=== PATIENT | male | born 1960 | race African-American/Black ===

== ENCOUNTER 2017-08-23 05:42 | Day surgery (SDC) | payer OTHER ==
[~2017-08-23] VITALS: Ht 177.8 cm; Wt 110.7 kg
--- NOTE | ~2017-08-23 | PATH ---
[facility] [place] [address] PATHOLOGY RPT PROCEDURE Name: CHARLI GREENE Luiz [id number] Admission: 08/23/17 Date of : 60 Discharge: 08/23/17 Report #: [id number] Path Case #: [id number] [facility] Accession Number: [id number] . 01 Material submitted: . PART A: CYSTIC MASS OF THE BACK PART B: SKIN TAGS, RIGHT FACE AND LEFT NECK . 01 Clinical history: . Back mass, skin tags . 02 Diagnosis: A. "Large cystic mass of the back", excision: - Skin and subcutaneous tissue with epidermal inclusion cyst. . B. "Skin tags right face, left neck", excision: - Polypoid seborrheic keratosis. - Acrochordon (fibroepithelial polyp, skin tag). (CLW:ulises; 08/25/2017) QMS/08/25/2017 . 02 Electronically signed: . Brianna Thurman MD, Pathologist NPI- [id number] . 01 Gross description: . A. The specimen is received in formalin, labeled "Charli Greene, large cystic mass of the back". Received is an ellipse of light vo skin with attached underlying capsular tissue measuring 7.7 x 5.5 x 4.1 cm in greatest dimensions. Sectioning reveals a unilocular cystic structure measuring 5.1 cm filled with white-vo friable material. The specimen is submitted representatively in cassette A1. . B. The specimen is received in formalin, labeled "Charli Greene, skin tags right face, left neck". Received are 13 tag-like segments of emerson-brown skin ranging in size from 0.1 x 0.1 x 0.1 to 0.5 x 0.4 x 0.3 cm in greatest dimensions. The surgical margins are inked. The specimen is submitted entirely in cassettes B1 and B2, with each segment submitted intact. (CAA; 08/24/2017) QAC/QAC . 02 Pathologist provided ICD-10: L72.0, L82.1 . 02 CPT . 849761, [id number] [place] [address] PATHOLOGY RPT PROCEDURE Name: CHARLI GREENE Room #: DEP [facility] M.R.#: [id number] Admission: 08/23/17 Date of : 60 Discharge: 08/23/17 Report #: [id number] Path Case #: [id number] Performed at: 01 [facility] [place] [address] [place] [address] [address], [place], [place] [id number] MD Fredo Mitchell MD Phone: [phone] Performed at: [address] [id number] MD Amanda De Souza MD Phone: [phone]
--- NOTE | ~2017-08-23 | O ---
[facility] [place] [address] [place] [address] OPERATIVE REPORT Name: CHARLI GREENE Room #: DEP [facility]#: [id number] Admission: 08/23/17 Attend Phys: Amos Cunningham MD Discharge: 08/23/17 Date of : 60 Report #: [id number] THIS REPORT FOR: //name// CC: BRIAN Cunningham DATE OF SERVICE: 08/23/[address] Amos Cunningham and Dr. Brian Kevin. PREOPERATIVE DIAGNOSES: Large 6 x 8.5 cm skin and deep subcutaneous mass of the back and 14 skin tags of the face and neck. POSTOPERATIVE DIAGNOSIS: Large 6 x 8.5 cm skin and deep subcutaneous mass of the back and 14 skin tags of the face and neck. PROCEDURE: Excision of a large 8.5 x 6 cm skin and subcutaneous cystic mass of the back with a complex layered closure and removal of 14 skin tags of the face and neck. SURGEON: Amos Cunningham MD. ANESTHESIA: Local. DESCRIPTION OF PROCEDURE: The patient was brought to the operating room and placed on operative table in the prone position. The back was then prepped and draped in a sterile fashion. Skin and subcutaneous tissue were then infiltrated with 0.5% Marcaine and 1% Xylocaine in a 1:1 mixture. Elliptical skin incision was performed over the mass using a #15 scalpel blade. Hemostasis obtained using electrocautery. Dissection was carried down around the cystic mass using the curved Pablo scissors and the knife. The mass was completely excised and sent to pathology. Meticulous hemostasis was checked and obtained in the area using the electrocautery. This dissection was carried down through skin and subcutaneous tissue and onto the fascia. The deep and superficial subcutaneous tissue then reapproximated using simple interrupted 2-0 Vicryl sutures and the skin then closed with a running 4-0 subcuticular Vicryl stitch. Wound was then dressed with Mastisol, 1/2-inch Steri-Strips cut in half, Telfa, 4 x 4 gauze, sponge and tape. The patient was then placed on the stretcher in the supine position. The right upper side of the face and the left lower neck were prepped and draped and infiltrated with the same local mixture. 14 skin tags were all excised using the cutting electrocautery and sent as specimen to pathology. The wounds were then dressed with antibiotic ointment. The patient was then taken to the outpatient discharge area, awake, alert and in good condition. Estimated blood loss was approximately 5 mL total for all procedures. The patient [address] [address] OPERATIVE REPORT Name: CHARLI GREENE Room #: DEP [facility].#: [id number] Admission: 08/23/17 Attend Phys: Amos Cunningham MD Discharge: 08/23/17 Date of : 60 Report #: [id number] tolerated procedure well. All sponge, lap and instrument counts correct times 2. <ELECTRONICALLY SIGNED> By: Amos Cunningham MD 08/24/17 1507 [id number] 1249 Amos Cunningham MD /nt
[~2017-08-23 05:42] MED LIST: KEFLEX500 M1 PO
[2017-08-23 08:28] VITALS: BP 139/83
[2017-08-23 12:22] VITALS: BP 139/83
== END 2017-08-23 13:00 | disposition home or self-care (01) ==
LOC: TBA 05:42 → OR 05:42
DX: L72.0 Epidermal cyst (principal); L82.1 Other seborrheic keratosis; F17.210 Nicotine dependence, cigarettes, uncomplicated; Z98.890 Other specified postprocedural states
CPT/HCPCS: 50010; 50101; 50386; 50403; 56526; 56528

== ENCOUNTER 2017-12-21 04:22 | Emergency (ER) | payer OTHER ==
[~2017-12-21] VITALS: Ht 177.8 cm; Wt 111.1 kg
--- NOTE | ~2017-12-21 | EKG ---
[place] [address] [facility] [place] [address] ELECTROCARDIOGRAM REPORT Name: CHARLI GREENE [facility] [id number] Admission: 12/21/17 Attend Phys: Discharge: 12/21/17 Date of : 60 Report #: [id number] THIS REPORT FOR: //name// [facility] ED Test Date: 2017-12-21 Test Time: 04:57:51 Pat Name: CHARLI GREENE Department: Room: Gender: M Staffing Rn: PETER DEAL : 1960 Requested By: Yvette Romeo Order Number: [id number] MD: Herminio Cohn Measurements Intervals [place] Rate: 54 P: 60 TN: 151 QRS: 40 QRSD: 111 T: 51 QT: 465 QTc: 441 Interpretive Statements Sinus rhythm Sinus arrhythmia Nonspecific ST and T wave abnormality No previous ECG available for comparison Electronically Signed On 12-21-2017 8:46:59 CDT by Herminio Cohn [email or web address] <ELECTRONICALLY SIGNED> By: Herminio Cohn MD, [facility] 12/21/17 [id number] [id number] Herminio Cohn MD, FACC /EPI
[2017-12-21 04:56] LABS: ABSOLUTE NEUTROPHILS 9.6 thou/uL (1.4-8.2); BASOPHILS 0.9 % (0.0-2.0); HEMATOCRIT 47.4 % (42.0-52.0); HEMOGLOBIN 15.5 gm/dL (14.0-18.0); LYMPHOCYTES 13.6 % (24.0-44.0); MCH 30.6 pg (26.0-34.0); MCHC 32.8 g/dL (28.0-37.0); MCV 93.3 fL (80.0-100.0); MONOCYTES 3.8 % (1.0-8.0); PLATELET COUNT 306 thou/uL (150-400); POLYS 81.7 % (36.0-66.0); RBC 5.08 mil/uL (4.50-6.00); RDW 13.3 % (10.5-14.5); WBC 11.8 thou/uL (4.0-11.0)
[2017-12-21 05:00] LABS: ANION GAP 13 mmol/L (7-16); BUN 14 mg/dL (7-18); CALCIUM 9.2 mg/dL (8.5-10.1); CHLORIDE 101 mmol/L (98-107); CO2 25 mmol/L (21-32); CREATININE 1.1 mg/dL (0.7-1.3); GLUCOSE 234 mg/dL (74-106); POTASSIUM 3.9 mmol/L (3.5-5.1); SODIUM 139 mmol/L (136-145)
[2017-12-21 05:05] LABS: URINE BILIRUBIN NEGATIVE (Negative); URINE BLOOD NEGATIVE (Negative); URINE CLARITY CLEAR; URINE COLOR YELLOW; URINE GLUCOSE-RANDOM* 3+ (Negative); URINE KETONES TRACE (Negative); URINE LEUKOCYTES-REFLEX NEGATIVE (Negative); URINE NITRITE-REFLEX NEGATIVE (Negative); URINE PROTEIN (DIPSTICK) NEGATIVE (Negative); URINE SPECIFIC GRAVITY 1.025 (1.005-1.035); URINE UROBILINOGEN 0.2 E.U./dl (0.2-1.0)
[2017-12-21 05:08] LABS: ALBUMIN 3.7 g/dL (3.4-5.0); DIRECT BILIRUBIN < 0.1 mg/dL (<0.1-0.3); LIPASE 110 U/L (73-393); SGOT 87 U/L (15-37); SGPT 86 U/L (30-65); TOTAL BILIRUBIN 0.3 mg/dL (<0.1-1.0); TOTAL PROTEIN 7.1 g/dL (6.4-8.2); TROPONIN-I <0.06 ng/mL (<0.06)
[2017-12-21] MEDS ORDERED: ZOFRAN ODT4 MG PO (05:47)
== END 2017-12-21 06:22 | disposition home or self-care (01) ==
LOC: ER 04:22
PROVIDERS: Emergency Medicine
DX: E86.0 Dehydration (principal); R11.2 Nausea with vomiting, unspecified; F41.9 Anxiety disorder, unspecified